=== PATIENT | male | born 1990 | race Caucasian/White ===

== ENCOUNTER 2017-03-15 08:13 | Emergency (ER) | payer OTHER ==
[~2017-03-15] VITALS: Ht 167.6 cm; Wt 65.8 kg
--- NOTE | 2017-03-15 08:33 | NUR ---
Dr Bentley at the bedside for eval and exam.
--- NOTE | 2017-03-15 08:40 | NUR ---
pt able to swallow w/o any difficulty.
[2017-03-15] MEDS ORDERED: ACETAMINOPHEN ES 500 MG TABLET PO ONE (08:45)
[2017-03-15] MEDS ORDERED: ACETAMINOPHEN ES 500 MG TABLET ONE (08:55)
--- NOTE | 2017-03-15 09:17 | NUR ---
pt was d/c to home. d/c instructions given to the pt. no s/s of distress at this time.
[2017-03-15 09:19] VITALS: BP 128/77
== END 2017-03-15 09:20 | disposition home or self-care (01) ==
LOC: ER 08:13
DX: R51 Headache (principal); Y04.0XXA Assault by unarmed brawl or fight, initial encounter; Y92.89 Other specified places as the place of occurrence of the external cause; Y93.89 Activity, other specified; Y99.8 Other external cause status
CPT/HCPCS: 70450; A4663